=== PATIENT | female | born 1980 | race Caucasian/White ===

== ENCOUNTER 2016-12-18 08:58 | Outpatient (CLI) | payer OTHER ==
[2016-12-18] MEDS ORDERED: BARIUM SULFATE 135 ML BOTTLE PO ONE (09:54)
[2016-12-18] MEDS ORDERED: BARIUM SULFATE 355 ML BOTTLE PO SCH (10:00)
[2016-12-18] MEDS ORDERED: BARIUM SULFATE 355 ML BOTTLE PO ONE (10:00)
--- NOTE | 2016-12-18 10:19 | XRAY Report ---
ESOPHAGRAM: 12/18/2016 CLINICAL INDICATION: Dysphagia. FINDINGS: Esophagram was performed in the supine and upright positions. The esophagus demonstrates normal caliber. No esophageal mass lesion or stricturing is identified. Te rtiary contractions were intermittently visualized. The hypopharynx appears unremarkable. There is a small sliding hiatal hernia present, which did produce gastroesophageal reflux during the course of t he study. A 13 mm barium pill lodged in the mid esophagus, at the level of the wendie, and would not pass distally despite multiple swallows of water. IMPRESSION: NO EVIDENCE OF ESOPHAGEAL ULCERATION OR MASS LESION. DIFFICULTY PASSING A 13 MM BARIUM P ILL, BUT NO DEFINITE FOCAL STRICTURING IS APPRECIATED ON PRONE IMAGING. SMALL SLIDING HIATAL HERNIA, PRODUCING GASTROESOPHAGEAL REFLUX. FLUOROSCOPY TIME: 3 MINUTES 3 SECONDS; 18 SPOT IMAGES OBTAINED. JOB #: [id number] EXT JOB #:[id number]
== END 2016-12-18 08:59 | disposition home or self-care (01) ==
LOC: DI 08:58
PROVIDERS: ATTEND Internal Medicine Gastroenterology
DX: K44.9 Diaphragmatic hernia without obstruction or gangrene (principal); K21.9 Gastro-esophageal reflux disease without esophagitis
CPT/HCPCS: 74220; A9270

== ENCOUNTER 2017-09-09 12:59 | Emergency (ER) | payer OTHER ==
[2017-09-09 13:06] VITALS: BP 116/61
== END 2017-09-09 14:28 | disposition left against medical advice (07) ==
LOC: ED 12:59
DX: Z53.21 Procedure and treatment not carried out due to patient leaving prior to being seen by health care provider (principal)
CPT/HCPCS: 93005

== ENCOUNTER 2018-07-21 04:39 | Emergency (ER) | payer OTHER ==
--- NOTE | 2018-07-21 04:42 | ED Physician Documentation ---
PD HPI ABD PAIN - Stated complaint Stated Complaint: ABD PX - History obtained from History obtained from: Patient - History of Present Illness Timing - onset: How many minutes ago (45) Timing - details: Abrupt onset Pain level now: 8 Quality: Pain Location: RLQ Radiation: Other (no radiation) Improved by: Other (nothing) Worsened by: Other (no exacerbating factors) Associated symptoms: Nausea. No: Fever, Vomiting, Diarrhea, Constipation Similar symptoms before: No diagnosis (has had similar episodes over past year) Recently seen: Clinic (PMD 4 days ago for UTI sx, prescribed macrobid) Review of Systems Constitutional: denies: Fever, Chills, Sweats Cardiac: reports: Reviewed and negative Respiratory: reports: Reviewed and negative GI: reports: Abdominal Pain, Nausea. denies: Vomiting, Constipation, Diarrhea : reports: Hematuria, LMP (3 weeks ago). denies: Dysuria, Frequency Musculoskeletal: denies: Back pain PD PAST MEDICAL HISTORY - Past Medical History Past Medical History: Yes GI: Other (Recurrent esophageal obstructions) - Past Surgical History Past Surgical History: Yes HEENT: Tonsil/Adenoidectomy - Present Medications Home Medications: Ambulatory Orders Medication Instructions Recorded Confirmed Oxycodone HCl/Acetaminophen 1 - 2 each PO Q6H PRN #14 tablet 07/21/18 [Percocet 5-325 mg Tablet] Tamsulosin [Flomax] 0.4 mg PO DAILY #14 capsule 07/21/18 - Allergies Allergies/Adverse Reactions: Allergies Allergy/AdvReac Type Severity Reaction Status Date / Time amoxicillin [Amoxicillin] Allergy Intermediate Hives Verified 07/21/18 04:48 Cephalosporins Allergy Intermediate Hives Verified 07/21/18 04:48 - Social History Does the pt smoke?: No Smoking Status: Never smoker Does the pt drink ETOH?: No Does the pt have substance abuse?: No - Immunizations Immunizations are current?: Yes - POLST Patient has POLST: No PD ED PE NORMAL - Vitals Vital signs reviewed: Yes - General General: Alert and oriented X 3, Well developed/nourished, Other (appears to be in painful distress, standing at bedside) - HEENT HEENT: Moist mucous membranes - Cardiac Cardiac: RRR, No murmur - Respiratory Respiratory: No respiratory distress, Clear bilaterally - Abdomen Abdomen: Soft, Non tender, Non distended - Back Back: No CVA TTP - Derm Derm: Normal color, Warm and dry Results - Vitals Vitals: Vital Signs - 24 hr 07/21/18 07/21/18 04:46 06:30 Temperature 36.4 C L Heart Rate 70 72 Respiratory 18 16 Rate Blood Pressure 115/61 119/65 O2 Saturation 99 99 Oxygen O2 Source Room air - Labs Labs: Laboratory Tests 07/21/18 07/21/18 07/21/18 04:54 04:54 04:54 WBC 9.4 RBC 4.82 Hgb 12.9 Hct 40.5 MCV 84.0 MCH 26.7 L MCHC 31.8 L RDW 15.7 H Plt Count 286 MPV 7.6 L Neut # (Auto) 5.6 Lymph # (Auto) 2.7 [place] # (Auto) 0.7 Eos # (Auto) 0.3 Baso # (Auto) 0.1 Absolute Nucleated RBC 0.01 Nucleated RBC % 0.1 Sodium 138 Potassium 3.5 Chloride 105 Carbon Dioxide 25 Anion Gap 8.0 BUN 11 Creatinine 0.9 Estimated GFR (MDRD) 70 L Glucose 129 H Calcium 8.7 Total Bilirubin 0.6 AST 18 ALT 15 Alkaline Phosphatase 75 Total Protein 7.3 Albumin 3.8 Globulin 3.5 Albumin/Globulin Ratio 1.1 Lipase 34 Serum HCG, Qual NEGATIVE Urine Color Urine Clarity Urine pH Ur Specific [place] Urine Protein Urine Glucose (UA) Urine Ketones Urine Occult Blood Urine Nitrite Urine Bilirubin Urine Urobilinogen Ur Leukocyte Esterase Urine RBC Urine WBC Ur Squamous Epith Cells Urine Bacteria Ur Microscopic Review Urine Culture Comments 07/21/18 05:44 WBC RBC Hgb Hct MCV MCH MCHC RDW Plt Count MPV Neut # (Auto) Lymph # (Auto) [place] # (Auto) Eos # (Auto) Baso # (Auto) Absolute Nucleated RBC Nucleated RBC % Sodium Potassium Chloride Carbon Dioxide Anion Gap BUN Creatinine Estimated GFR (MDRD) Glucose Calcium Total Bilirubin AST ALT Alkaline Phosphatase Total Protein Albumin Globulin Albumin/Globulin Ratio Lipase Serum HCG, Qual Urine Color YELLOW Urine Clarity CLEAR Urine pH 5.5 Ur Specific [place] >=1.030 H Urine Protein TRACE Urine Glucose (UA) NEGATIVE Urine Ketones NEGATIVE Urine Occult Blood LARGE H Urine Nitrite NEGATIVE Urine Bilirubin NEGATIVE Urine Urobilinogen 0.2 (NORMAL) Ur Leukocyte Esterase TRACE H Urine RBC TNTC H Urine WBC 0-3 Ur Squamous Epith Cells RARE Squamous Urine Bacteria None Seen Ur Microscopic Review INDICATED Urine Culture Comments INDICATED - Rads (name of study) CT A/P Radiology: Prelim report reviewed, See rad report PD MEDICAL DECISION MAKING - ED course Complexity details: reviewed old records, reviewed results, re-evaluated patient, considered differential, d/w patient ED course: Patient reported excellent symptomatic relief with IV toradol and was in NAD on reevaluations. Results d/w patient including CT, which shows large proximal ureteral calculus as well as other right renal calculi measuring up to 1.2 cm. Recommended f/u, will likely need urology f/u Departure - Departure Disposition: Home, Self Care Clinical Impression: Renal colic Condition: Good Instructions: ED Stone Renal W Colic Follow-Up: JARETH SLOIS MD [Primary Care Provider] - (Call this morning to arrange for next available appointment) Prescriptions: Oxycodone HCl/Acetaminophen [Percocet 5-325 mg Tablet] 1 - 2 each PO Q6H PRN #14 tablet PRN Reason: pain Tamsulosin [Flomax] 0.4 mg PO DAILY #14 capsule Discharge Date/Time: 07/21/18 07:14
[2018-07-21] MEDS ORDERED: SODIUM CHLORIDE 0.9% 1,000 ML IV STA (04:52)
[2018-07-21] MEDS ORDERED: KETOROLAC 60 MG/2 ML VIAL IVP STA (04:52)
[2018-07-21 05:14] LABS: BASOPHILS # (AUTO) 0.1 10^3/uL (0.0-0.1); BASOPHILS % (AUTO) 0.6 %; EOSINOPHILS # (AUTO) 0.3 10^3/uL (0.0-0.7); HGB - HEMOGLOBIN 12.9 g/dL (12.0-16.0); LYMPHOCYTES # (AUTO) 2.7 10^3/uL (1.5-3.5); LYMPHOCYTES % (AUTO) 28.5 %; MEAN CORPUSCULAR HEMOGLOBIN 26.7 pg (27.0-31.0); MEAN CORPUSCULAR HGB CONC 31.8 g/dL (32.0-36.0); MEAN PLATELET VOLUME 7.6 fL (7.9-10.8); MONOCYTES # (AUTO) 0.7 10^3/uL (0.0-1.0); MONOCYTES % (AUTO) 7.9 %; NEUTROPHILS # (AUTO) 5.6 10^3/uL (1.5-6.6); PLT - PLATELET COUNT 286 10^3/uL (130-450); RED BLOOD COUNT 4.82 10^6/uL (4.20-5.40); RED CELL DISTRIBUTION WIDTH 15.7 % (12.0-15.0); WHITE BLOOD COUNT 9.4 x10^3/uL (4.8-10.8)
[2018-07-21 05:27] LABS: ALBUMIN 3.8 g/dL (3.2-5.5); ALBUMIN/GLOBULIN RATIO 1.1 (1.0-2.2); BILIRUBIN,TOTAL 0.6 mg/dL (0.2-1.0); CALCIUM 8.7 mg/dL (8.5-10.3); CREATININE 0.9 mg/dL (0.4-1.0); TOTAL PROTEIN 7.3 g/dL (6.7-8.2)
[2018-07-21 05:43] LABS: HCG,QUALITATIVE BLOOD NEGATIVE
[2018-07-21] MEDS ORDERED: IOVERSOL 320 100 ML VIAL IVP ONE (06:01)
[2018-07-21 06:31] VITALS: BP 119/65
--- NOTE | 2018-07-21 06:34 | CT Report ---
Reason: right flank/RLQ pain Procedure Date: 07/21/2018 Accession Number: [id number] / [id number] Procedure: CT - Abdomen/Pelvis W/O CPT Code: FULL RESULT: EXAM: CT ABDOMEN AND PELVIS (CT KUB) EXAM DATE: 07/21/2018 06:22 AM. CLINICAL HISTORY: Right flank/RLQ pain. COMPARISONS: None. TECHNIQUE: Routine axial helical CT imaging was performed through the abdomen and pelvis without IV contrast. Reconstructions: Coronal and sagittal. In accordance with CT protocol optimization, one or more of the following dose reduction techniques were utilized for this exam: automated exposure control, adjustment of mA and/or KV based on patient size, or use of iterative reconstructive technique. FINDINGS: Lung Bases: Unremarkable. Right Kidney/Ureter: Right renal calculi, with the largest stone, in the upper pole collecting system, measuring 12 mm. Moderate right hydronephrosis, with a 7 x 6 mm calculus in the proximal right ureter. Left Kidney/Ureter: No stones, hydronephrosis, or hydroureter. No perinephric fat stranding. Other Solid Organs: Noncontrast images of the solid organs are grossly unremarkable. Gallbladder/Bile Ducts: Hyperdense material within the gallbladder, which may represent stones or sludge. No biliary dilatation. Peritoneal Cavity: No free fluid, free air or charan adenopathy. Bowel is grossly unremarkable. The appendix is normal. Pelvic Organs: No bladder stones or wall thickening. Noncontrast images of the visualized pelvic organs are unremarkable. Vasculature: Unremarkable. Other: Supraumbilical hernia, containing fat. No bowel herniation. IMPRESSION: 7 x 6 mm calculus in the proximal right ureter, producing moderate hydronephrosis. Right renal calculi, measuring up to 12 mm. RADIA
[2018-07-21 06:35] LABS: BILIRUBIN,URINE NEGATIVE (NEGATIVE); GLUCOSE, URINE (UA) NEGATIVE (NEGATIVE); KETONES,URINE (UA) NEGATIVE (NEGATIVE); LEUKOCYTE ESTERASE, URINE TRACE (NEGATIVE); NITRITE,URINE NEGATIVE (NEGATIVE); OCCULT BLOOD,URINE LARGE (NEGATIVE); PH,URINE 5.5 PH (5.0-7.5); PROTEIN,URINE TRACE mg/dL (NEGATIVE); UROBILINOGEN,URINE 0.2 (NORMAL) E.U./dL (NORMAL)
[2018-07-21 06:36] LABS: BACTERIA,URINE None Seen /HPF (None Seen); CLARITY,URINE CLEAR (CLEAR); RBC,URINE TNTC /HPF (0-5); SQUAMOUS EPITHELIAL CELL,UR RARE Squamous (<= Few)
[2018-07-21] MEDS ORDERED: TAMSULOSIN 0.4 MG CAPSULE PO STA (07:02)
== END 2018-07-21 07:14 | disposition home or self-care (01) ==
LOC: ED 04:39
DX: N13.2 Hydronephrosis with renal and ureteral calculous obstruction (principal)
CPT/HCPCS: 36415; 74176; 80053; 81001; 83690; 84703; 85025; 87086; 96361; 96374; 99283; 99284; A9270; 81003

== ENCOUNTER 2018-10-22 08:49 | Outpatient (CLI) | payer OTHER ==
--- NOTE | 2018-10-22 10:25 | XRAY Report ---
Reason: KIDNEY STONES Procedure Date: 10/22/2018 Accession Number: [id number] / [id number] Procedure: XRN - Abdomen 1 View X-Ray CPT Code: 49082 FULL RESULT: EXAM: ABDOMEN RADIOGRAPHY EXAM DATE: 10/22/2018 09:09 AM. CLINICAL HISTORY: Kidney stones. COMPARISON: ABDOMEN/PELVIS W/O 07/21/2018 6:06 AM. TECHNIQUE: 1 view. FINDINGS: Bowel Gas Pattern: Nonobstructive bowel gas pattern. Moderate to large stool burden throughout the colon. Other: 13 mm stone overlies the upper pole of the right kidney, little changed from prior CT comparison. No appreciable ureteral stone. Phleboliths noted within the pelvis. IMPRESSION: Right upper pole nephrolithiasis similar to prior CT. No appreciable ureterolithiasis. RADIA
== END 2018-10-22 08:50 | disposition home or self-care (01) ==
LOC: DI.N 08:49
PROVIDERS: ATTEND Specialist
DX: N20.0 Calculus of kidney (principal)
CPT/HCPCS: 74018

== ENCOUNTER 2020-07-04 18:59 | Emergency (ER) | payer OTHER ==
[2020-07-04 19:18] VITALS: BP 116/73
[2020-07-04] MEDS ORDERED: DOXYCYCLINE 100 MG TABLET PO STA (20:11)
[2020-07-04] MEDS ORDERED: TETANUS/DIPHTHERIA/PERTUSSIS 0.5 ML SYRINGE IM ONE (20:11)
--- NOTE | 2020-07-04 20:18 | ED Physician Documentation ---
History of Present Illness - Stated complaint Stated Complaint: CAT BITE - Chief complaint Chief Complaint: Wound - History obtained from History obtained from: Patient - History of Present Illness Timing: Prior to arrival - Additonal information Additional information: 39-year-old female presents emergency department for evaluation of cat bite wound to the left palm and multiple scratches to her left forearm. She reports her animals vaccines is up-to-date. Her tetanus is nearly 10 years old. Her also presents for similar. Review of Systems Constitutional: reports: Reviewed and negative Eyes: reports: Reviewed and negative Ears: reports: Reviewed and negative Nose: reports: Reviewed and negative Throat: reports: Reviewed and negative Cardiac: reports: Reviewed and negative GI: reports: Reviewed and negative Skin: reports: Bite / sting (left forearm;palm) PD PAST MEDICAL HISTORY - Past Medical History GI: Other - Past Surgical History Past Surgical History: Yes HEENT: Tonsil/Adenoidectomy - Present Medications Home Medications: Ambulatory Orders Medication Instructions Recorded Confirmed Oxycodone HCl/Acetaminophen 1 - 2 each PO Q6H PRN #14 tablet 07/21/18 [Percocet 5-325 mg Tablet] Tamsulosin [Flomax] 0.4 mg PO DAILY #14 capsule 07/21/18 Minocycline HCl 100 mg PO BID #20 capsule 07/04/20 - Allergies Allergies/Adverse Reactions: Allergies Allergy/AdvReac Type Severity Reaction Status Date / Time amoxicillin [Amoxicillin] Allergy Intermediate Hives Verified 07/21/18 04:48 Cephalosporins Allergy Intermediate Hives Verified 07/21/18 04:48 - Social History Does the pt smoke?: No Smoking Status: Never smoker Does the pt drink ETOH?: No Does the pt have substance abuse?: No - Immunizations Immunizations are current?: No Immunizations: TDAP >10years/unknown - POLST Patient has POLST: No PD ED PE EXPANDED - Extremities Extremities: Left forearm (For linear scratches on the left forearm without surrounding erythema or swelling. Superficial in nature. No subcutaneous tissue involved), Left hand (Bite puncture wound on left hand just below thenar eminence. Normal flexion extension of wrist. Normal movement of thumb. No swelling or erythema) Results - Vitals Vitals: Vital Signs - 24 hr 07/04/20 19:14 Temperature 36.8 C Heart Rate 78 Respiratory 14 Rate Blood Pressure 116/73 O2 Saturation 98 Oxygen O2 Source Room air PD MEDICAL DECISION MAKING - ED course Complexity details: considered differential, d/w patient ED course: 39-year-old female presents emergency department for evaluation and treatment of multiple scratch wounds to her left forearm and a cat bite to her left palm. Her tetanus was updated today in the emergency department. She reports a penicillin allergy will prescribe 10 days of doxycycline. Routine wound care and emergent return precautions for concerns of infection discussed Departure - Departure Disposition: Home, Self Care Clinical Impression: Cat bite involving extremity, Cat scratch Condition: Stable Record reviewed to determine appropriate education?: Yes Instructions: Bites Scratches Animal, ED Animal Bite Ch Prescriptions: Minocycline HCl 100 mg PO BID #20 capsule Comments: Cally a cat bite wounds and scratches are at high risk of infection. Please with prescription for the antibiotic and take twice daily as directed. It is okay to wash your scratches with warm soap and water pat dry and apply any antibiotic ointment such as Neosporin or bacitracin. If at any point you have swelling, redness, milky drainage fevers or any concerns of infection please return immediately to the ER
== END 2020-07-04 20:32 | disposition home or self-care (01) ==
LOC: ED 18:59
DX: S61.452A Open bite of left hand, initial encounter (principal); W55.01XA Bitten by cat, initial encounter; S50.812A Abrasion of left forearm, initial encounter; W55.03XA Scratched by cat, initial encounter; Y93.89 Activity, other specified; Y92.009 Unspecified place in unspecified non-institutional (private) residence as the place of occurrence of the external cause; Z23 Encounter for immunization; Z88.0 Allergy status to penicillin
CPT/HCPCS: 90471; 90715; 99281; 99283; A9270